=== PATIENT | female | born 1945 | race Caucasian/White ===

== ENCOUNTER 2019-05-16 07:46 | Outpatient (CLI) | payer MEDICARE, SELFPAY ==
[2019-05-16 08:30] LABS: Alanine Aminotransferase 14 U/L (4-35); Albumin Level 4.5 g/dL (3.5-5.1); Alkaline Phosphatase 64 U/L (38-126); Aspartate Amino Transferase 26 U/L (14-36); Bilirubin,Total 0.8 mg/dL (0.2-1.3); Blood Urea Nitrogen 15 mg/dL (7-17); Calcium 9.6 mg/dL (8.4-10.2); Carbon Dioxide 31 mmol/L (22-30); Chloride 97 mmol/L (98-107); Cholesterol 197 mg/dL (0-200); Estimated Glomerular Filt Rate > 60; Glucose 105 mg/dL (65-105); HDL Direct 70 mg/dL; Potassium 3.6 mmol/L (3.4-5.0); Sodium 140 mmol/L (137-145); Triglycerides 147 mg/dL (<150)
[2019-05-16 08:51] LABS: LDL Cholesterol Direct 102 mg/dL
== END 2019-05-16 07:47 | disposition home or self-care (01) ==
PROVIDERS: PCP Family Medicine; Visit Provider Nurse Practitioner Family
DX: E78.2 Mixed hyperlipidemia (principal); I10 Essential (primary) hypertension
CPT/HCPCS: 36415; 80048; 80061; 80076

== ENCOUNTER 2019-09-14 11:05 | Outpatient (CLI) | payer MEDICARE, SELFPAY ==
[2019-09-14 12:45] LABS: Free T4 Free Thyroxine 1.18 ng/mL (0.78-2.19)
== END 2019-09-14 11:06 | disposition home or self-care (01) ==
PROVIDERS: PCP Family Medicine; Visit Provider Internal Medicine Endocrinology, Diabetes & Metabolism
DX: E89.0 Postprocedural hypothyroidism (principal)
CPT/HCPCS: 36415; 84439; 84443

== ENCOUNTER 2020-01-08 07:59 | Outpatient (CLI) | payer MEDICARE, SELFPAY ==
[2020-01-08 08:43] LABS: Alanine Aminotransferase 12 U/L (4-35); Albumin Level 4.2 g/dL (3.5-5.1); Alkaline Phosphatase 59 U/L (38-126); Anion Gap 7 mmol/L (8-16); Aspartate Amino Transferase 23 U/L (14-36); Bilirubin,Total 0.9 mg/dL (0.2-1.3); Blood Urea Nitrogen 15 mg/dL (7-17); Calcium 9.1 mg/dL (8.4-10.2); Carbon Dioxide 35 mmol/L (22-30); Chloride 95 mmol/L (98-107); Cholesterol 194 mg/dL (0-200); Estimated Glomerular Filt Rate > 60; Glucose 112 mg/dL (65-105); HDL Direct 58 mg/dL; Potassium 3.4 mmol/L (3.4-5.0); Sodium 137 mmol/L (137-145); Triglycerides 196 mg/dL (<150)
[2020-01-08 08:54] LABS: LDL Cholesterol Direct 103 mg/dL
[2020-01-08 11:03] LABS: Total Triiodothyronine (T3) 1.31 NG/ML (0.97-1.69)
== END 2020-01-08 08:00 | disposition home or self-care (01) ==
PROVIDERS: PCP Family Medicine; Visit Provider Nurse Practitioner Family
DX: E78.2 Mixed hyperlipidemia (principal); I10 Essential (primary) hypertension; E03.9 Hypothyroidism, unspecified
CPT/HCPCS: 36415; 80048; 80061; 80076; 84439; 84443; 84480

== ENCOUNTER 2020-01-23 09:21 | Outpatient (CLI) | payer MEDICARE, SELFPAY ==
--- NOTE | ~2020-01-23 | CT_ITS ---
EXAMINATION: CT chest w con EXAM DATE: 01/23/2020 10:32 INDICATION: Ascending aortic aneurysm. TECHNIQUE: Spiral CT of the chest following intravenous injection of 75 mL Omnipaque 350. Axial, cor onal and sagittal images were reviewed. Coronal maximum intensity pixel images of chest reviewed. T zane dose-length product (DLP) for this examination was 122.87 mGy-cm. The exposure was tailored accor ding to patient size (auto mA exposure control), and iterative reconstruction (ASIR) was used as ney tional dose reduction technique. Comparison is made to prior examination from 10/19/2017. FINDINGS: The ascending aorta measures 4.1 cm, mildly dilated but unchanged. There is no dissection. There are no pleural or pericardial effusions. Tracheobronchial tree is patent. There is no medi astinal, hilar or axillary lymphadenopathy. There is no pneumothorax. Mild cardiomegaly. There i s mild coronary arterial calcification, arterial sclerosis. There are cholecystectomy clips. Small d uodenal diverticulum. There is thoracic spondylosis without osteoblastic or osteolytic lesions ident ified. IMPRESSION: 1. Stable ascending aorta at 4.1 cm. 2. Cardiomegaly. Reviewed, dictated and finalized at location A. /REC/DOC CONTROL
== END 2020-01-23 09:22 | disposition home or self-care (01) ==
PROVIDERS: PCP Family Medicine; Visit Provider Specialist
DX: I71.2 Thoracic aortic aneurysm, without rupture (principal); I51.7 Cardiomegaly
CPT/HCPCS: 71260; Q9967

== ENCOUNTER 2020-04-19 14:21 | Outpatient (CLI) | payer MEDICARE, SELFPAY ==
--- NOTE | ~2020-04-19 | MM_ITS ---
EXAMINATION: MM screening [facility] BI w doni HISTORY: Screening mammogram TECHNIQUE: Craniocaudal and mediolateral oblique 3-D tomosynthesis images were obtained and synthetic 2-D images were generated. CAD analysis was submitted and interpreted. COMPARISON: 04/10/2019, 09/06/2017, 09/02/2016 BREAST PARENCHYMAL COMPOSITION: The breasts are heterogeneously dense, which may obscure small masses . FINDINGS: There is no evidence of suspicious mass, calcification, or architectural distortion to sugg est malignancy in either breast. There has been no suspicious interval change. IMPRESSION: 1. No mammographic evidence of malignancy. 2. Recommend routine screening mammography in one year. BI-RADS Category 1: Negative Reviewed, dictated and finalized at location A. E RECYCLER
== END 2020-04-19 14:22 | disposition home or self-care (01) ==
LOC: ANHIMG 14:23
PROVIDERS: PCP Nurse Practitioner Family; Visit Provider Nurse Practitioner Family
DX: Z12.31 Encounter for screening mammogram for malignant neoplasm of breast (principal)
CPT/HCPCS: 77063; 77067

== ENCOUNTER 2020-09-13 08:21 | Outpatient (CLI) | payer MEDICARE, SELFPAY ==
[2020-09-13 11:05] LABS: Free T4 Free Thyroxine 1.41 ng/mL (0.78-2.19)
== END 2020-09-13 08:22 | disposition home or self-care (01) ==
PROVIDERS: PCP Nurse Practitioner Family; Visit Provider Internal Medicine Endocrinology, Diabetes & Metabolism
DX: E89.0 Postprocedural hypothyroidism (principal)
CPT/HCPCS: 36415; 84439; 84443

== ENCOUNTER 2020-10-22 13:40 | Outpatient (CLI) | payer MEDICARE, SELFPAY ==
--- NOTE | ~2020-10-22 | MM_ITS ---
EXAMINATION: MM screening [facility] BI w doni HISTORY: Screening TECHNIQUE: Craniocaudal and mediolateral oblique 3-D tomosynthesis images were obtained and synthetic 2-D images were generated. CAD analysis was submitted and interpreted. COMPARISON: Comparison to multiple prior studies sequentially, with oldest reviewed study dated 05/07. BREAST PARENCHYMAL COMPOSITION: There are scattered areas of fibroglandular density. FINDINGS: There is no evidence of suspicious mass, calcification, or architectural distortion to sugg est malignancy in either breast. There has been no suspicious interval change. IMPRESSION: 1. No mammographic evidence of malignancy. 2. Recommend routine screening mammography in one year. BI-RADS Category 1: Negative Reviewed, dictated and finalized at location A.
--- NOTE | ~2020-10-22 | DEXA_ITS ---
Bone Density Report Name: Kalee Castle Age: 75 Sex: Female Ethnicity: White Date of : 1945 Indication: osteopenia; height loss; hysterectomy; postmenopausal Referring Provider: Je, Umu Chadwick Study: Bone densitometry was performed. Exam Date: October 22, 2020 Accession number: [id number] Bone Density: Region BMD T-score Z-score Classification AP Spine (L3, L4) 1.120 0.2 2.7 Normal Femoral Neck (Left) 0.648 -1.8 0.2 Osteopenia Total Hip (Left) 0.788 -1.3 0.5 Osteopenia Total Hip Bilateral Avg 0.794 -1.3 0.6 Osteopenia Femoral Neck (Right) 0.662 -1.7 0.4 Osteopenia Total Hip (Right) 0.799 -1.2 0.6 Osteopenia World Health Organization criteria for BMD impression classify patients as: Normal (T-score at or above -1.0), Osteopenia (T-score between -1.0 and -2.5), or Osteoporosis (T-score at or below -2.5). 10-year Fracture Risk(1): Major Osteoporotic Fracture 12% Hip Fracture 2.7% Reported Risk Factors: [place] (), Neck BMD=0.648, BMI=27.3 (1) FRAX(R) Version 3.08. Fracture probability calculated for an untreated patient. Fracture probability may be lower if the patient has received treatment. Previous Exams: Region Exam Age BMD T-score BMD Change BMD Change Date g/cm2 vs Baseline vs Previous AP Spine(L3, L4) 10/22/2020 75 1.120 0.2 0.009(0.8%)# -0.047(-4.0%)* 09/02/2016 71 1.167 0.6 0.056(5.1%)# 0.043(3.9%)# 12/16/2010 65 1.124 0.2 0.013(1.1%) -0.044(-3.8%)* 09/14/2007 62 1.168 0.6 0.057(5.1%)* 0.044(3.9%)* 08/19/2005 60 1.124 0.2 0.013(1.2%) 0.013(1.2%) 05/26/2001 55 1.111 0.1 Total Hip(Left) 10/22/2020 75 0.788 -1.3 -0.034(-4.1%)# 0.001(0.2%) 09/02/2016 71 0.787 -1.3 -0.035(-4.3%)# 0.047(6.4%)# 12/16/2010 65 0.739 -1.7 -0.083(-10.1%) -0.040(-5.1%)* 09/14/2007 62 0.779 -1.3 -0.043(-5.2%)* -0.019(-2.3%) 08/19/2005 60 0.798 -1.2 -0.024(-2.9%) -0.024(-2.9%) 05/26/2001 55 0.822 -1.0 Total Hip(Right) 10/22/2020 75 0.799 -1.2 -0.059(-6.9%)# 0.036(4.8%)# 12/16/2010 65 0.762 -1.5 -0.095(-11.1%) -0.029(-3.6%)* 09/14/2007 62 0.791 -1.2 -0.067(-7.8%)* -0.016(-2.0%) 08/19/2005 60 0.807 -1.1 -0.050(-5.9%)* -0.050(-5.9%)* 05/26/2001 55 0.858 -0.7 *Denotes significance at 95% confidence level, LSC for AP Spine = 0.022 g/cm2, LSC for Total Hip = 0.027 g/cm2 Clinical Information Provided by Patient: Has the following medical conditions: Hysterectom
== END 2020-10-22 13:41 | disposition home or self-care (01) ==
LOC: ANHIMG 13:41
PROVIDERS: PCP Nurse Practitioner Family; Visit Provider Nurse Practitioner Family
DX: Z12.31 Encounter for screening mammogram for malignant neoplasm of breast (principal); Z78.0 Asymptomatic menopausal state; M85.852 Other specified disorders of bone density and structure, left thigh; M85.851 Other specified disorders of bone density and structure, right thigh
CPT/HCPCS: 77063; 77067; 77080

== ENCOUNTER 2021-08-19 22:11 | Emergency (ER) | payer MEDICARE, SELFPAY ==
--- NOTE | ~2021-08-19 | CT_ITS ---
EXAMINATION: CT abdomen pelvis wo con DATE: 08/19/2021 23:01 INDICATION: RLQ pain TECHNIQUE: Computed tomography (CT) of the abdomen and pelvis was performed without intravenous contr ast. Automated exposure control and iterative reconstruction technique were employed. The dose-length product was 446.29 mGy-cm. COMPARISON: 09/30/2017. FINDINGS: Lower thorax: Bibasilar scar/atelectasis. Moderate coronary artery calcification. Liver: Normal. Biliary/Gallbladder: Gallbladder is absent. No bile duct dilation. Pancreas: No mass or duct dilation. Fatty infiltration. Spleen: Focal hypodensity may represent a tiny cyst or hemangioma but is too small to characterize. Adrenals:No mass. Kidneys: Subcentimeter left midpole hyperdensity may represent a small proteinaceous or hemorrhagic c yst but is too small to characterize. GI tract: No small or large bowel dilation. Normal appendix. Duodenal diverticulum. Mesentery/Peritoneum: No ascites, mass, or free air. Retroperitoneum: No mass. Pelvis: Uterus absent, otherwise pelvic organs are within normal limits. Soft Tissues: Small umbilical and bilateral fat-containing inguinal hernias. Bones: No acute osseous finding. IMPRESSION: No acute abdominopelvic process. Reviewed, dictated and finalized at location K.
[2021-08-19 22:39] VITALS: BP 162/69; PULSE 56; RESP 16; TEMP 36.2; O2SAT 98
[2021-08-19] MEDS: MORPHINE SULFATE (*CRX) 4 MG/ML INJ IV PUSH (22:47)
[2021-08-19 22:48] LABS: Basophils Percent Auto 0.6 % (0.2-1.2); Eosinophils Absolute Auto 0.4 K/mm3 (0-0.3); Eosinophils Percent Auto 5.6 % (0-4.4); Hematocrit 40.2 % (37.0-47.0); Hemoglobin 13.5 g/dL (12.0-15.0); Immature Granulocyte Absolute 0.01 K/mm3 (0.00-0.031); Immature Granulocyte Percent A 0.2 % (0-0.5); Lymphocytes Absolute Auto 1.83 K/mm3 (0.9-3.2); Lymphocytes Percent Auto 28.5 % (18.3-44.2); Mean Corpuscular HGB Conc 33.6 g/dl (32-36); Mean Corpuscular Hemoglobin 29.7 pg (26-34); Mean Corpuscular Volume 88.4 fl (80-100); Monocytes Absolute Auto 0.6 K/mm3 (0.1-0.6); Monocytes Percent Auto 9.5 % (2.6-8.5); Neutrophils Absolute Auto 3.6 K/mm3 (1.3-6.7); Neutrophils Percent Auto 55.6 % (45.5-73.1); Platelet Count Result 267 k/mm3 (150-375); Red Blood Count 4.55 M/mm3 (4.2-5.4); Red Cell Distribution Width 12.5 % (11.5-14.5); White Blood Count 6.4 K/mm3 (4.5-10.0)
[2021-08-19 23:00] LABS: Alanine Aminotransferase 15 U/L (6-35); Albumin Level 4.3 g/dL (3.5-5.1); Alkaline Phosphatase 63 U/L (38-126); Anion Gap 5 mmol/L (8-16); Aspartate Amino Transferase 25 U/L (14-36); Bilirubin,Total 0.5 mg/dL (0.2-1.3); Blood Urea Nitrogen 12 mg/dL (7-17); Calcium 8.9 mg/dL (8.4-10.2); Carbon Dioxide 32 mmol/L (22-30); Chloride 100 mmol/L (98-107); Estimated CRCL calculation 50 ml/min; Estimated Glomerular Filt Rate > 60; Glucose 107 mg/dL (65-110); Lipase 129 U/L (23-300); Potassium 3.2 mmol/L (3.4-5.0); Sodium 137 mmol/L (137-145)
[2021-08-19 23:31] VITALS: BP 172/67; PULSE 57; RESP 18; O2SAT 97
--- NOTE | 2021-08-19 23:55 | ED.ABDPAIN ---
HPI - Abdominal Pain General Chief Complaint: Abdominal Pain Stated Complaint: right side abd pain Time Seen by Provider: 08/19/21 22:35 History of Present Illness HPI narrative: 76-year-old female presenting with sharp intermittent pain in her right lower quadrant that started today, denies any nausea or vomiting, states that the pain seems to kind of radiate down to her right leg, she was concerned it may be appendicitis, no fevers or chills. No dysuria. Related Data Home Medications Medication Instructions Recorded Confirmed hydrochlorothiazide 25 mg tablet tablet 08/19/21 levothyroxine 50 mcg tablet tablet 08/19/21 metoprolol succinate 50 mg tablet PO 08/19/21 tablet,extended release 24 hr montelukast 10 mg tablet tablet 08/19/21 simvastatin 40 mg tablet tablet 08/19/21 Allergies Allergy/AdvReac Type Severity Reaction Status Date / Time No Known Allergies Allergy Verified 08/19/21 22:38 Review of Systems Review of Systems: CONST: No fever. HEENT: No sore throat C/V: No chest pain RESP: No cough GI: Reports abdominal pain : No dysuria. M/S: No joint pain. SKIN: No rash. NEURO: [No headache or focal numbness or weakness] PSYCH: [No depression] [facility] Past Medical History Medical History (Updated 08/20/21 @ 02:55 by Luz Falcon MD) Hypertension Surgical History Surgical History (Updated 08/19/21 @ 23:57 by Luz Falcon MD) Hx of cholecystectomy Exam Narrative: EXAMINATION OF ORGAN SYSTEMS/BODY AREAS: Constitutional: Vital signs per nursing GENERAL:[No acute distress, non-toxic appearing.] HEAD: Normal with no signs of head trauma. EYES: EOMI, conjunctiva normal ENT: Hearing grossly intact LUNGS: Nonlabored breathing. HEART: [Regular rate and rhythm] ABD: [Soft], mildly [tender to palpation] right lower quadrant EXT: Normal range of motion but some elicitation of pain with flexion of right leg/hip SKIN: [No rashes or lesions.] NEURO: [Alert and oriented x 3. No gross focal sensory or strength deficits.] PSYCH: Normal affect Course Vital Signs Vital signs: Vital Signs Temperature 97.2 F L 08/19/21 22:39 Pulse Rate 56 L 08/19/21 22:39 Respiratory Rate 16 08/19/21 22:39 Blood Pressure 162/69 H 08/19/21 22:39 Pulse Oximetry 98 08/19/21 22:39 Oxygen Delivery Room Air 08/19/21 22:39 Temperature 97.2 F L 08/19/21 22:39 Pulse Rate 58 L 08/20/21 03:15 Respiratory Rate 18 08/20/21 03:15 Blood Pressure 147/77 H 08/20/21 03:15 Pulse Oximetry 98 08/20/21 03:15 Oxygen Delivery Room Air 08/19/21 22:39 MDM - Abdominal Pain MDM Narrative Medical decision making narrative: 76-year-old female presenting with right lower quadrant pain, vital signs stable, exam shows minimal tenderness to palpation of the right lower quadrant, differential includes appendicitis, UTI, kidney stone, less likely SBO. Labs notable for low potassium which patient is repleted, urinalysis consistent with UTI, CT of the abdomen/pelvis does not show anything acute, patient will be started on antibiotics, given strict return precautions and stable for discharge home with antibiotics. Lab Data Result diagrams: 08/19/21 22:43 08/19/21 22:43 Labs: Lab Results 08/19/21 08/19/21 08/19/21 Range/Units 22:43 22:43 23:09 WBC 6.4 (4.5-10.0) K/mm3 RBC 4.55 (4.2-5.4) M/mm3 Hgb 13.5 (12.0-15.0) g/dL Hct 40.2 (37.0-47.0) % MCV 88.4 (80-100) fl MCH 29.7 (26-34) pg MCHC 33.6 (32-36) g/dl RDW 12.5 (11.5-14.5) % Plt Count 267 (150-375) k/mm3 MPV 10.0 (7.4-10.4) fl Immature Gran % (Auto) 0.2 (0-0.5) % Neut % (Auto) 55.6 (45.5-73.1) % Lymph % (Auto) 28.5 (18.3-44.2) % [place] % (Auto) 9.5 H (2.6-8.5) % Eos % (Auto) 5.6 H (0-4.4) % Baso % (Auto) 0.6 (0.2-1.2) % Lymph # (Auto) 1.83 (0.9-3.2) K/mm3 [place] # (Auto) 0.6 (0.1-0.6) K/mm3 Eos # (Auto) 0.4 H (0-0.3)
[2021-08-20] MEDS: POTASSIUM CHLORIDE 20 MEQ PACKET (FOR LIQUID) 40 MEQ PO (00:54)
[2021-08-20 00:56] VITALS: BP 166/74; PULSE 58; RESP 18; O2SAT 98
[2021-08-20 01:36] LABS: Appearance Urine Clear (Clear); Bilirubin Urine Negative (Negative); Blood Urine Trace-lysed (Negative); Color Urine Yellow (Yellow); Glucose Urine UA Negative (Negative); Ketones Urine Negative (Negative); Leukocyte Esterase Ur 2+ LEU/UL (Negative); Nitrate Urine Negative (Negative); Protein Urine Negative (Negative); Specific Grav Ur 1.025 (1.001-1.035); pH Urine 5.5 (5.0-9.0)
[2021-08-20 01:44] LABS: Bacteria Urine Trace /hpf; Mucus Urine Rare /lpf; Squamous Epithelial Cell Urine Occasional /hpf (Few); WBC Urine >75 /hpf
[2021-08-20 01:57] LABS: Add Urine Microscopic? YES
[2021-08-20] MEDS: cefTRIAXone 2 GM in SODIUM CHLORIDE 0.9% IV 100 ML 200 ML IVPB (02:36)
[2021-08-20 03:15] VITALS: BP 147/77; PULSE 58; RESP 18; O2SAT 98
== END 2021-08-20 03:16 | disposition home or self-care (01) ==
PROVIDERS: Emergency Provider Emergency Medicine; PCP Nurse Practitioner Family
DX: N39.0 Urinary tract infection, site not specified (principal); I10 Essential (primary) hypertension
CPT/HCPCS: 36415; 74176; 80053; 81001; 83690; 85025; 87086; 87088; 96365; 96374; 99284; A9270; J0696; J2270

== ENCOUNTER 2021-10-24 07:18 | Outpatient (CLI) | payer MEDICARE, SELFPAY ==
--- NOTE | ~2021-10-24 | MM_ITS ---
EXAMINATION: MM screening [facility] BI w doni HISTORY: Screening mammogram TECHNIQUE: Craniocaudal and mediolateral oblique 3-D tomosynthesis images were obtained and synthetic 2-D images were generated. CAD analysis was submitted and interpreted. COMPARISON: 10/22/2020, 04/19/2020, 04/10/2019 BREAST PARENCHYMAL COMPOSITION: The breasts are heterogeneously dense, which may obscure small masses . FINDINGS: There is no suspicious mass, calcification, or architectural distortion to suggest malignan cy in either breast. There has been no suspicious interval change. IMPRESSION: 1. No mammographic evidence of malignancy. 2. Recommend routine screening mammography in one year. BI-RADS Category 1: Negative Reviewed, dictated and finalized at location A.
== END 2021-10-24 07:19 | disposition home or self-care (01) ==
PROVIDERS: PCP Nurse Practitioner Family; Visit Provider Nurse Practitioner Family
DX: Z12.31 Encounter for screening mammogram for malignant neoplasm of breast (principal)
CPT/HCPCS: 77063; 77067

== ENCOUNTER 2021-12-17 10:35 | Outpatient (CLI) | payer MEDICARE, SELFPAY ==
--- NOTE | ~2021-12-17 | XR_ITS ---
EXAM: XR lumbar spine min 4V DATE: 12/17/2021 11:06 HISTORY: BILATERAL HIP JOINT PAIN. NKI . COMPARISON: 04/27/2011. FINDINGS: Cholecystectomy clips. Lumbar scoliosis. No pars defect. Grade 1 retrolistheses at L1-2, L2 -3, and a grade 1 anterolisthesis at L4-5. 5 nonrib-bearing lumbar-type vertebral bodies. Pedicles in tact. Mild vertebral body height loss at L1, unchanged. Multilevel disc space narrowing and marginal osteophytosis. Multilevel severe facet sclerosis and hypertrophy. Unfused posterior L5 arch. No fract ure or dislocation. IMPRESSION: Multilevel degenerative disc disease, severe at L1-2. Severe lower lumbar facet arthropat hy. Reviewed, dictated and finalized at location K. IMPRESSION: Multilevel degenerative disc disease, severe at L1-2. Severe lower lumbar facet arthropathy.
--- NOTE | ~2021-12-17 | XR_ITS ---
XR hip RT min 3V w AP pelvis 12/17/2021 11:06 Indication: Bilateral hip pain Procedure: AP pelvis and 3 views right Comparison: 04/03/1999 Findings: There is mild bilateral osteoarthritis of the hips. Pelvic rings are intact. There is minim al lumbar spondylosis. There are symmetric degenerative changes of the sacroiliac joints. There is mi ld osteitis pubis. Impression: 1: Mild bilateral osteoarthritis of the hips. Reviewed, dictated and finalized at location B. Impression: 1: Mild bilateral osteoarthritis of the hips.
== END 2021-12-17 10:36 | disposition home or self-care (01) ==
PROVIDERS: PCP Nurse Practitioner Family; Visit Provider Family Medicine
DX: M51.36 Other intervertebral disc degeneration, lumbar region (principal); M16.0 Bilateral primary osteoarthritis of hip
CPT/HCPCS: 72110; 73502

== ENCOUNTER 2022-02-07 08:09 | Outpatient (CLI) | payer MEDICARE, SELFPAY ==
--- NOTE | ~2022-02-07 | XR_ITS ---
XR hip BI 2V w AP pelvis 02/07/2022 08:35 Indication: Bilateral hip pain Procedure: 4 views of each hip including AP pelvis Comparison: 12/17/2021 Findings: There is mild-moderate osteoarthritis of the hips. There is osteitis pubis. Sacral foramen are symmetric. Pelvic rings are intact. No significant soft tissue abnormality. No foreign bodies. Impression: 1: Mild-moderate osteoarthritis of the hips. Reviewed, dictated and finalized at location A. [employer] Impression: 1: Mild-moderate osteoarthritis of the hips.
== END 2022-02-07 08:10 | disposition home or self-care (01) ==
PROVIDERS: PCP Nurse Practitioner Family; Visit Provider Family Medicine
DX: M16.0 Bilateral primary osteoarthritis of hip (principal)
CPT/HCPCS: 73521

== ENCOUNTER 2023-01-28 09:33 | Outpatient (CLI) | payer MEDICARE, SELFPAY ==
[2023-01-28 11:12] LABS: Anion Gap 11 mmol/L (8-16); Blood Urea Nitrogen 12 mg/dL (7-17); Calcium 9.8 mg/dL (8.4-10.2); Carbon Dioxide 29 mmol/L (22-30); Chloride 98 mmol/L (98-107); Cholesterol 202 mg/dL (0-200); Estimated Glomerular Filt Rate > 60; Glucose 99 mg/dL (65-110); HDL Direct 60 mg/dL; Potassium 3.3 mmol/L (3.4-5.0); Sodium 138 mmol/L (137-145); Triglycerides 161 mg/dL (<150)
[2023-01-28 11:21] LABS: Hemoglobin A1C 5.7 % (<5.7)
[2023-01-28 11:23] LABS: LDL Cholesterol Direct 103 mg/dL
== END 2023-01-28 09:34 | disposition home or self-care (01) ==
LOC: ANHLAB 09:37
PROVIDERS: PCP Nurse Practitioner Family; Visit Provider Nurse Practitioner Family
DX: E78.5 Hyperlipidemia, unspecified (principal); E03.9 Hypothyroidism, unspecified; I10 Essential (primary) hypertension; R73.9 Hyperglycemia, unspecified
CPT/HCPCS: 36415; 80048; 80061; 83036; 84443

== ENCOUNTER 2023-07-21 13:49 | Outpatient (CLI) | payer MEDICARE, SELFPAY ==
--- NOTE | ~2023-07-21 | MM_ITS ---
EXAMINATION: MM screening [facility] BI w doni HISTORY: Screening mammogram TECHNIQUE: Craniocaudal and mediolateral oblique 3-D tomosynthesis images were obtained and synthetic 2-D images were generated. CAD analysis was submitted and interpreted. COMPARISON: 10/25/1999 22,008 12/17/2020 bilateral screening mammogram examinations BREAST PARENCHYMAL COMPOSITION: There are scattered areas of fibroglandular density. FINDINGS: There is no evidence of suspicious mass, calcification, or architectural distortion to sugg est malignancy in either breast. There has been no suspicious interval change. IMPRESSION: 1. No mammographic evidence of malignancy. 2. Recommend routine screening mammography in one year. BI-RADS Category 1: Negative Reviewed, dictated and finalized at location B.
== END 2023-07-21 13:50 | disposition home or self-care (01) ==
LOC: ANHIMG 13:51
PROVIDERS: PCP Family Medicine; Visit Provider Family Medicine
DX: Z12.31 Encounter for screening mammogram for malignant neoplasm of breast (principal)
CPT/HCPCS: 77063; 77067

== ENCOUNTER 2023-07-28 09:54 | Outpatient (CLI) | payer MEDICARE, SELFPAY ==
--- NOTE | ~2023-07-28 | XR_ITS ---
Supine and upright views of the abdomen Clinical history: Constipation COMPARISON: 04/03/2007 Findings: Bowel gas pattern is nonspecific. No evidence for obstruction or free air. No abnormal mass lesion or calcification is seen. Cholecystectomy clips are present. There is degenerative spondylosi s of the lumbar spine. Impression: No significant abnormality is seen. Reviewed, dictated and finalized at [facility]. Impression: No significant abnormality is seen.
== END 2023-07-28 09:55 | disposition home or self-care (01) ==
LOC: ANHIMG 09:56
PROVIDERS: PCP Family Medicine; Visit Provider Family Medicine
DX: Z13.820 Encounter for screening for osteoporosis (principal); K59.04 Chronic idiopathic constipation
CPT/HCPCS: 74018

== ENCOUNTER 2024-01-07 08:57 | Outpatient (CLI) | payer MEDICARE, SELFPAY ==
--- NOTE | ~2024-01-07 | DEXA_ITS ---
Bone Density Report Name: OKSANA ARCEO Age: 78 Sex: Female Ethnicity: White Date of : 1945 Indication: osteopenia; hysterectomy; Referring Provider: TINO, RICK Cardona Study: Bone densitometry was performed. Exam Date: January 07, 2024 Accession number: [id number] Bone Density: Region BMD T-score Z-score Classification AP Spine(L3, L4) 1.131 0.3 3.0 Normal Femoral Neck (Left) 0.659 -1.7 0.5 Osteopenia Total Hip (Left) 0.852 -0.7 1.2 Normal Femoral Neck (Right) 0.678 -1.5 0.7 Osteopenia Total Hip (Right) 0.871 -0.6 1.3 Normal Total Hip Mean 0.862 -0.7 1.3 Normal World Health Organization criteria for BMD impression classify patients as: Normal (T-score at or above -1.0), Osteopenia (T-score between -1.0 and -2.5), or Osteoporosis (T-score at or below -2.5). 10-year Fracture Risk(1): Major Osteoporotic Fracture 13% Hip Fracture 3.2% Reported Risk Factors: [place] (), Neck BMD=0.659, BMI=27.7 (1) FRAX(R) Version 3.08. Fracture probability calculated for an untreated patient. Fracture probability may be lower if the patient has received treatment. Previous Exams: Region Exam Age BMD T-score BMD Change BMD Change Date g/cm2 vs Baseline vs Previous AP Spine (L3-L4) 01/07/2024 78 1.131 0.3 -0.036 (-3.1%) 0.011 (1.0%) 10/22/2020 75 1.120 0.2 -0.047 (-4.0%) -0.047 (-4.0%) 09/02/2016 71 1.167 0.6 Total Hip(Right) 01/07/2024 78 0.871 -0.6 0.073 (9.1%)* 0.073 (9.1%)* 10/22/2020 75 0.799 -1.2 *Denotes significance at 95% confidence level, LSC for AP Spine = 0.022 g/cm2, LSC for Total Hip = 0.027 g/cm2 Clinical Information Provided by Patient: Has used the following medications: Vitamin D, muliti women vit Has the following medical conditions: Hysterectomy Patient maximum height was 61 Menopause Age: 46 Onset of menses at age 14 Number of children 3 Impression: The patient has low bone mass, based on the Left Femoral Neck T-score. The patient has an estimated ten-year risk of hip fracture of 3.2% and an estimated ten-year risk of major fracture of 13%, based on the WHO FRAX algorithm. No significant bone loss was observed. Discussion: BONE DENSITY IS LOW AT ONE OR MORE SKELETAL SITES. THE PATIENT'S BMD AND CLINICAL RISK FACTORS CONTRIBUTE TO THIS PATIENT'S INCREASED RISK OF FRACTURE. This patient's lowest T-score is low at one or more skeletal sites. It meets the World Health Organization's (WHO) criteria for ?low bone mass? (T-score between -1.0 and -2.5). The patient's 10-year risk of hip fracture as calculated by FRAX exceeds the threshold where pharmacological therapy is recommended by the National Osteoporosis Foundation (NOF). However, all treatment decisions require clinical judgment and consideration of individual patient factors, including patient preferences, comorbidities, previous drug use, risk factors not captured in the FRAX model (e.g., frailty, falls, vitamin D deficiency, increased bone turnover, interval significant decline in bone density) and possible under or overestimation of fracture risk by FRAX. The patient should follow a healthful lifestyle (good nutrition with adequate calcium and vitamin D, and appropriate weight-bearing exercise). Follow-Up: Consider a repeat BMD and Vertebral Fracture Assessment (VFA) exam in 2 years or sooner if medically necessary, to reassess this patient's status. Reported by: SHAKIRA on 01/07/2024 9:33:00 AM. Reviewed, dictated and finalized at location AMadi SMITH
== END 2024-01-07 08:58 | disposition home or self-care (01) ==
PROVIDERS: PCP Family Medicine
DX: Z78.0 Asymptomatic menopausal state (principal); M85.852 Other specified disorders of bone density and structure, left thigh; M85.851 Other specified disorders of bone density and structure, right thigh
CPT/HCPCS: 77080

== ENCOUNTER 2024-10-18 12:16 | Emergency (ER) | payer OTHER, MEDICARE, SELFPAY ==
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
[2024-10-18 12:18] VITALS: BP 168/82; PULSE 71; RESP 16; TEMP 36.4; O2SAT 97
--- OUTSIDE RECORDS SUMMARY | 2024-10-18 12:28 | XMS_ITS | Clinical Summary ---
Author Organization [facility] [address] Address [address] [place] [address] Care Team Providers Care Radiology Administrator Name Role Phone Prakash Orr MD Primary Care Provider [phone] Umu Wooten [employer] S[employer]IOR OFFICER Unavailable [phone] Allergies No known active allergies Medications hydroCHLOROthiazide (HYDRODIURIL) 25 mg tablet take 1 tablet (25MG) by oral route every day 0 1 Active montelukast (SINGULAIR) 10 mg tablet take 1 tablet by oral route every day in the evening 0 0 6 Active simvastatin (ZOCOR) 40 mg tablet take 1 tablet by oral route every day in the evening 0 6 Active metoprolol XL (TOPROL-XL) 50 mg 24 hr tablet Take 1 tablet (50 mg total) by mouth 2 (two) times a day Active multivit with minerals/lutein (MULTIVITAMIN 50 PLUS ORAL) 8 Active cetirizine (ZyrTEC) 10 mg tablet Take 1 tablet (10 mg total) by mouth daily 4 Active fluticasone propionate (FLONASE) 50 mcg/actuation nasal spray SHAKE LIQUID AND USE 2 SPRAYS IN EACH NOSTRIL EVERY MORNING 4 Active levothyroxine (SYNTHROID) 50 mcg tabletIndications:P ostablative hypothyroidism TAKE 1 TABLET(50 MCG) BY MOUTH DAILY 90 tablet 2 4 Active Active Problems Problem Noted Date Diagnosed Date Ascending aortic aneurysm 11/11/2016 Aortic regurgitation 11/11/2016 Hypertension 04/12/2012 Overview (06/18/2016): Hypertension, Unspecified 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 Clinically euthyroid on current levothyroxine 50mcg daily. Aware to take 1st thing in morning, 30-60 minutes before food/drink/other medications. Will update labs today. Does not mychart. Verified phone #/address to contact re: results. Assessment & Plan (10/15/2022 1:36 PM CDT): Chronic, well controlled Continue Levothyroxine at current dose Update TFTs Assessment & Plan (10/14/2021 2:39 PM CDT): Thyroid function tests, including TSH and free T4 were requested Will adjust dose of Levothyroxine accordingly . If there is a need to make changes, will recheck levels in 2-3 months. Instructions to patient on taking medication properly : in the morning, on an empty stomach , 1 h part from food and/or other meds. Assessment & Plan (09/12/2020 1:24 PM CDT): Thyroid function tests, including TSH and free T4 were requested Will adjust dose of Levothyroxine accordingly . If there is a need to make changes, will recheck levels in 2-3 months. Instructions to patient on taking medication properly : in the morning, on an empty stomach , 1 h part from food and/or other meds. Assessment & Plan (09/14/2019 10:31 AM CDT): Will check TSH and free T4 Will adjust dose of Levothyroxine accordingly . If there is a need to make changes, will recheck levels in 2-3 months. Instructions to patient on taking medication properly : in the morning, on an empty stomach , 1 h part from food and/or other meds. Assessment & Plan (06/15/2019 9:33 AM CDT): Will try to get report of labs done recently Will set up chintan in 3 moths. Assessment & Plan (05/24/2018 9:28 AM CDT): Will check TSH. Will adjust dose of Levothyroxine accordingly . If there is a need to make changes, will recheck levels in 2-3 months. Instructions to patient on taking medication properly : in the morning, on an empty stomach , 1 h part from food and/or other meds. If any doses are missed, can take 2-3 tab together ,to make up for the missed dose; make sure at the end to the week, 7 tabs have been taken. Assessment & Plan (05/25/2017 9:52 AM CDT): Check TSH, free T4 Adjust dose of Levothyroxine accordingly . 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 Overview (06/19/2016): TOX DIF GOITER NO CRISIS Surgical History Surgery Date Site/Laterality Comments OTHER SURGICAL HISTORY thyroid nodule: hemithyroidectomy CHOLECYSTECTOMY Cholecystectomy Medical History Medical History Date Comments Hx Other Medical thyroid nodule Hyperlipidemia Hyperlipidemia Hypertension Hypertension Osteoporosis Osteoporosis Disorder of thyroid Thyroid dise ase Family History Medical History Relation Name Comments Other Mother due to fire Relation Name Status Comments Father Mother (Age 51) Social History Tobacco Use Types Packs/Day Years Used Date Smoking Tobacco: Never Smokeless Tobacco: Never Alcohol Use Standard Drinks/Week Comments No 0 (1 standard drink = 0.6 oz pur e alcohol) PHQ-2 Answer Date Recorded PHQ-2 Total Score (If total score is 3 or more points, staff should administer the PHQ-9) 0 10/14/2021 Comments Unknown Sex and Gender Information Value Date Recorded Sex Assigned at Not on file Legal Sex Female 10:15 AM WATER CONSERVATION SPECIALIST Gender Identity Not on file Sexual Orientation Not on file Obstetrics History Last Filed Vital Signs Vital Sign Reading Time Taken Comments Blood Pressure 134/84 04/20/2024 9:35 AM WATER CONSERVATION SPECIALIST Pulse 76 04/20/2024 9:35 AM WATER CONSERVATION SPECIALIST Temperature - - Respiratory Rate 16 01/03/2024 12:53 PM CDT Oxygen Saturation 96% 04/20/2024 9:35 AM WATER CONSERVATION SPECIALIST Inhaled Oxygen Concentration - - Weight 67.1 kg (148 lb) 04/20/2024 9:35 AM WATER CONSERVATION SPECIALIST Height 152.4 cm (5') 04/20/2024 9:35 AM WATER CONSERVATION SPECIALIST Body Mass Index 28.9 04/20/2024 9:35 AM WATER CONSERVATION SPECIALIST Plan of Treatment Health Maintenance Due Date Last Done Comments Fall Risk Assessment 1945 Hepatitis C Screening 1945 Osteoporosis Screening-Bone Density Scan 1945 Hepatitis B Screening 1964 Zoster Vaccine (1 of 2) 1996 Well Visit 65+ 07/28/2011 Depression Screening 10/14/2022 10/14/2021, 09/12/2020, 09/14/2019, Additional history exists Influenza Vaccine (#1) 2024 9, 02/22/2018, 02/15/2017, Additional history exists DTaP/Tdap/Td Vaccine (2 - Td or Tdap) 08/30/2028 08/30/2018 Pneumococcal vaccine 65+ Completed 08/30/2018, 02/12 Insurance [facility] MEDIC[facility] ADVANTAGE [facility] Care Teams Radiology Administrator Relationship Specialty Start Date End Date Prakash Orr MD [address] [place], [place] [address] [address] PCP - General Family Medicine 10/14/21 Umu Wooten NP [address] [place], [place] [address] [address] Nurse Practitioner Nurse Practitioner 10/14/21
--- OUTSIDE RECORDS SUMMARY | 2024-10-18 12:28 | XMS_ITS | Encounter Summary ---
Author Organization [facility] Healthcare Address [address] [place] [address] Care Team Providers Care Media Relations Coordinator Name Role Phone Jerad Hernandez MD Primary Care Provider [phone] Prakash Orr MD Primary Care Provider [phone] Umu Wooten CLOTH PRINTING INSPECTOR Unavailable [phone] Encounter Details Date Type Department Care Team (Late st Contact Info) Description 10/19/2017 Orders Only [facility] [place] Information Management [address] [place] [address] Scanning, Provider Social History Tobacco Use Types Packs/Day Years Used Date Smoking Tobacco: Never Smokeless Tobacco: Never Alcohol Use Standard Drinks/Week Comments No 0 (1 standard drink = 0.6 oz pur e alcohol) Comments Unknown Sex and Gender Information Value Date Recorded Sex Assigned at Not on file Legal Sex Female 10:15 AM METROLOGY SPECIALIST Gender Identity Not on file Sexual Orientation Not on file documented as of this encounter Plan of Treatment Not on file documented as of this encounter Procedures Procedure Name Priority Date/Time Associated Diagnosis Comments SCAN - LABS 10/19/2017 documented in this encounter Results * SCAN - LABS (10/19/2017) us Provider Scanning Final Result documented in this encounter Visit Diagnoses Not on filedocumented in this encounter Care Teams Media Relations Coordinator Relationship Specialty Start Date End Date Jerad Hernandez MD [address] [place] [address] [place] [address] PCP - General 06/12/16 10/13/21 Prakash Orr MD [address] [place] [address] PCP - General Family Medicine 10/14/21 Umu Wooten NP [address] [place] [address] Nurse Practitioner Nurse Practitioner 10/14/21 documented as of this encounter
--- OUTSIDE RECORDS SUMMARY | 2024-10-18 12:28 | XMS_ITS | Encounter Summary ---
Author Organization [facility] Healthcare Address [address] [place] [address] Care Team Providers Care Engine Research Engineer Name Role Phone Jerad Hernandez MD Primary Care Provider [phone] Prakash Orr MD Primary Care Provider [phone] Umu Wooten PRIME BROKER Unavailable [phone] Encounter Details Date Type Department Care Team (Late st Contact Info) Description 05/26/2017 Orders Only [facility] Health Information Management [address] [place] [id number] Scanning, Provider Social History Tobacco Use Types Packs/Day Years Used Date Smoking Tobacco: Never Smokeless Tobacco: Never Alcohol Use Standard Drinks/Week Comments No 0 (1 standard drink = 0.6 oz pur e alcohol) Comments Unknown Sex and Gender Information Value Date Recorded Sex Assigned at Not on file Legal Sex Female 10:15 AM SLIP FEEDER Gender Identity Not on file Sexual Orientation Not on file documented as of this encounter Plan of Treatment Not on file documented as of this encounter Procedures Procedure Name Priority Date/Time Associated Diagnosis Comments SCAN - LABS 05/26/2017 documented in this encounter Results * SCAN - LABS (05/26/2017) us Provider Scanning Final Result documented in this encounter Visit Diagnoses Not on filedocumented in this encounter Care Teams Engine Research Engineer Relationship Specialty Start Date End Date Jerad Hernandez MD [address] [place] [address] [place] [address] PCP - General 06/12/16 10/13/21 Prakash Orr MD [address] [place] [address] PCP - General Family Medicine 10/14/21 Umu Wooten NP [address] [place] [address] Nurse Practitioner Nurse Practitioner 10/14/21 documented as of this encounter
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
[2024-10-18] MEDS: TIZANIDINE HCL 2 MG TABLET PO (15:08)
[2024-10-18] MEDS: IBUPROFEN 600 MG TABLET PO (15:09)
--- OUTSIDE RECORDS SUMMARY | 2024-10-18 15:27 | XMS_ITS | Encounter Summary ---
Author Organization [facility] Healthcare Address [address] [place] [address] Care Team Providers Care Computer Engineering Professor Name Role Phone Jerad Hernandez MD Primary Care Provider [phone] Prakash Orr MD Primary Care Provider [phone] Umu Wooten RELEASE OF INFORMATION CLERK Unavailable [phone] Encounter Details Date Type Department Care Team (Late st Contact Info) Description 05/26/2017 Orders Only [facility] Health Information Management [address] [place] [address] Scanning, Provider Social History Tobacco Use Types Packs/Day Years Used Date Smoking Tobacco: Never Smokeless Tobacco: Never Alcohol Use Standard Drinks/Week Comments No 0 (1 standard drink = 0.6 oz pur e alcohol) Comments Unknown Sex and Gender Information Value Date Recorded Sex Assigned at Not on file Legal Sex Female 10:15 AM CHIEF MARKETING OFFICER Gender Identity Not on file Sexual Orientation [...] on filedocumented in this encounter Care Teams Computer Engineering Professor Relationship Specialty Start Date End Date Jerad Hernandez MD [address] [place] [address] [place] [address] PCP - General 06/12/16 10/13/21 Prakash Orr MD [address] [place] [address] PCP - General Family Medicine 10/14/21 Umu Wooten NP [address] [place] [address] Nurse Practitioner Nurse Practitioner 10/14/21 documented as of this encounter
--- OUTSIDE RECORDS SUMMARY | 2024-10-18 15:27 | XMS_ITS | Encounter Summary ---
Author Organization [facility] Healthcare Address [address] [place] [address] Care Team Providers Care Catering Convention Services Manager Name Role Phone Jerad Hernandez MD Primary Care Provider [phone] Prakash Orr MD Primary Care Provider [phone] Umu Wooten CABLE DRILLER Unavailable [phone] Encounter Details Date Type Department Care Team (Late st Contact Info) Description 10/19/2017 Orders Only [facility] [place] Health Information Management [address] [place] [address] Scanning, Provider Social History Tobacco Use Types Packs/Day Years Used Date Smoking Tobacco: Never Smokeless Tobacco: Never Alcohol Use Standard Drinks/Week Comments No 0 (1 standard drink = 0.6 oz pur e alcohol) Comments Unknown Sex and Gender Information Value Date Recorded Sex Assigned at Not on file Legal Sex Female 10:15 AM STONE CLEANER Gender Identity Not on file Sexual Orientation [...] on filedocumented in this encounter Care Teams Catering Convention Services Manager Relationship Specialty Start Date End Date Jerad Hernandez MD [address] [place] [address] [place] [address] PCP - General 06/12/16 10/13/21 Prakash Orr MD [address] [place] [address] PCP - General Family Medicine 10/14/21 Umu Wooten NP [address] [place] [address] Nurse Practitioner Nurse Practitioner 10/14/21 documented as of this encounter
--- OUTSIDE RECORDS SUMMARY | 2024-10-18 15:27 | XMS_ITS | Clinical Summary ---
Author Organization [facility] [address] Address [address] [place] [address] Care Team Providers Care Floor Associate Name Role Phone Prakash Orr MD Primary Care Provider [phone] Umu Wooten YARN PACKER Unavailable [phone] Allergies No known active allergies Medications hydroCHLOROthiazide [...] on file Legal Sex Female 10:15 AM LYE BATH OPERATOR Gender Identity Not on file Sexual Orientation Not on file Obstetrics History Last Filed Vital Signs Vital Sign Reading Time Taken Comments Blood Pressure 134/84 04/20/2024 9:35 AM LYE BATH OPERATOR Pulse 76 04/20/2024 9:35 AM LYE BATH OPERATOR Temperature - - Respiratory Rate 16 01/03/2024 12:53 PM CDT Oxygen Saturation 96% 04/20/2024 9:35 AM LYE BATH OPERATOR Inhaled Oxygen Concentration - - Weight 67.1 kg (148 lb) 04/20/2024 9:35 AM LYE BATH OPERATOR Height 152.4 cm (5') 04/20/2024 9:35 AM LYE BATH OPERATOR Body Mass Index 28.9 04/20/2024 9:35 AM LYE BATH OPERATOR Plan of Treatment Health Maintenance Due Date [...] Pneumococcal vaccine 65+ Completed 08/30/2018, 02/12 Insurance [facility] MEDIC[facility] AD[facility]ANT[facility] Address: [facility] [address] [place] [address] [facility] MEDICARE ADVANTAGE [facility] Address[facility] [address] [place] [address] Care Teams Floor Associate Relationship Specialty Start Date End Date Prakash Orr MD [address] [place], [place] [address] [address] PCP - General Family Medicine 10/14/21 Umu Wooten NP [address] [place], [place] [address] [address] Nurse Practitioner Nurse Practitioner 10/14/21
== END 2024-10-18 15:26 | disposition home or self-care (01) ==
LOC: ANHED 15:21
PROVIDERS: Emergency Provider Emergency Medicine; PCP Family Medicine
DX: S16.1XXA Strain of muscle, fascia and tendon at neck level, initial encounter (principal); S49.91XA Unspecified injury of right shoulder and upper arm, initial encounter; I10 Essential (primary) hypertension; Z90.49 Acquired absence of other specified parts of digestive tract; M47.814 Spondylosis without myelopathy or radiculopathy, thoracic region; R93.6 Abnormal findings on diagnostic imaging of limbs; M17.12 Unilateral primary osteoarthritis, left knee; Z79.899 Other long term (current) drug therapy; V43.52XA Car driver injured in collision with other type car in traffic accident, initial encounter
CPT/HCPCS: 70450; 72125; 72128; 73030; 73564; 99284; A9270

== ENCOUNTER 2025-02-02 13:13 | Outpatient (CLI) | payer MEDICARE, SELFPAY ==
--- NOTE | ~2025-02-02 | MM_ITS ---
EXAMINATION: MM screening [facility] BI w doni HISTORY: Screening TECHNIQUE: Craniocaudal and mediolateral oblique 3-D tomosynthesis images were obtained and synthetic 2-D images were generated. CAD analysis was submitted and interpreted. COMPARISON: Comparison to multiple prior studies sequentially, with oldest reviewed study dated 09/06/2017. BREAST PARENCHYMAL COMPOSITION: Not dense: There are scattered areas of fibroglandular density. FINDINGS: There is no evidence of suspicious mass, calcification, or architectural distortion to suggest malignancy in either breast. There has been no suspicious interval change. IMPRESSION: 1. No mammographic evidence of malignancy. 2. Recommend routine screening mammography in one year. BI-RADS Category 1: Negative Reviewed, dictated and finalized at location O. [employer]
== END 2025-02-02 13:14 | disposition home or self-care (01) ==
LOC: MICIMG 13:14
PROVIDERS: PCP Family Medicine; Visit Provider Family Medicine
DX: Z12.31 Encounter for screening mammogram for malignant neoplasm of breast (principal)
CPT/HCPCS: 77063; 77067